=== PATIENT | male | born 1955 | race Caucasian/White ===

== ENCOUNTER → 2020-10-21 16:57 | Outpatient (CLI) | payer MEDICARE ==
[2020-10-21 17:27] LABS: ALBUMIN 3.2 g/dL (3.4-5.0); ALKALINE PHOSPHATASE 125 U/L (30-120); ALT (SGPT) 51 U/L (10-68); BILIRUBIN - TOTAL 0.69 mg/dL (0.2-1.3); CALC OSMOLALITY 273 mosm/kg (275-300); CALCIUM 9.2 mg/dL (8.5-10.1); CARBON DIOXIDE 20.4 mmol/L (21.0-32.0); CHLORIDE - SERUM 102 mmol/L (98-107); CREATININE - SERUM 0.8 mg/dL (0.6-1.3); GLUCOSE 106 mg/dL (74-106); POTASSIUM - SERUM 4.4 mmol/L (3.5-5.1); PROTEIN - SERUM 7.4 g/dL (6.4-8.2); SODIUM 136 mmol/L (136-145); UREA NITROGEN 19 mg/dL (7-18); eGFR NON AFRICAN AMERICAN > 90 mL/min (90-120)
[2020-10-21 17:47] LABS: HEMATOCRIT 41.5 % (42.0-54.0); LYMPHOCYTE ABS# 0.94 10x3/uL (1.32-3.57); MCHC 33.7 g/dL (31.0-37.0); MEAN PLATELET VOLUME 9.2 fL (7.4-10.4); NEUTROPHIL ABS# 18.04 10x3/uL (1.78-5.38); PLATELET COUNT 226 10x3/uL (130-400); RBC 4.37 10x6/uL (4.20-6.10); RDW 14.1 % (11.5-14.5); WBC 20.9 10x3/uL (4.8-10.8)
[2020-10-21 18:18] LABS: LYMPHOCYTES 11 % (15-50); MONOCYTES 5 % (2-11); NEUTROPHILS 84 % (40-80); PLATELET ESTIMATE NORMAL
== END | disposition home or self-care (01) ==
LOC: D.LABREF 16:57
PROVIDERS: ATTEND Family Medicine
DX: G31.83 Neurocognitive disorder with Lewy bodies (principal); E43 Unspecified severe protein-calorie malnutrition; F41.9 Anxiety disorder, unspecified

== ENCOUNTER → 2020-10-24 18:14 | Outpatient (CLI) | payer MEDICARE ==
[2020-10-24 18:35] LABS: HEMATOCRIT 41.5 % (42.0-54.0); HEMOGLOBIN 14.5 g/dL (13.5-17.5); LYMPHOCYTE ABS# 1.07 10x3/uL (1.32-3.57); MCH 32.5 pg (26.0-34.0); MCHC 34.9 g/dL (31.0-37.0); MEAN PLATELET VOLUME 8.7 fL (7.4-10.4); RBC 4.46 10x6/uL (4.20-6.10); WBC 10.5 10x3/uL (4.8-10.8)
[2020-10-24 18:36] LABS: PLATELET COUNT 292 10x3/uL (130-400)
[2020-10-24 19:21] LABS: LYMPHOCYTES 15 % (15-50); MONOCYTES 2 % (2-11); NEUTROPHILS 80 % (40-80); PLATELET ESTIMATE NORMAL
== END | disposition home or self-care (01) ==
LOC: D.LABREF 18:14
PROVIDERS: ATTEND Family Medicine
DX: D72.829 Elevated white blood cell count, unspecified (principal)

== ENCOUNTER → 2020-10-25 17:45 | Outpatient (CLI) | payer MEDICARE ==
[2020-10-25 19:37] LABS: ALBUMIN 3.4 g/dL (3.4-5.0); ALKALINE PHOSPHATASE 114 U/L (30-120); ALT (SGPT) 34 U/L (10-68); BILIRUBIN - TOTAL 0.42 mg/dL (0.2-1.3); CALC OSMOLALITY 289 mosm/kg (275-300); CARBON DIOXIDE 23.8 mmol/L (21.0-32.0); CHLORIDE - SERUM 98 mmol/L (98-107); POTASSIUM - SERUM 4.2 mmol/L (3.5-5.1); SODIUM 137 mmol/L (136-145); UREA NITROGEN 36 mg/dL (7-18); eGFR NON AFRICAN AMERICAN 79 mL/min (90-120)
[2020-10-25 19:54] LABS: GLUCOSE 235 mg/dL (74-106)
== END | disposition home or self-care (01) ==
LOC: D.LABREF 17:45
PROVIDERS: ATTEND Family Medicine
DX: E43 Unspecified severe protein-calorie malnutrition (principal); G31.83 Neurocognitive disorder with Lewy bodies; J18.9 Pneumonia, unspecified organism; R63.0 Anorexia

== ENCOUNTER → 2021-01-31 17:25 | Outpatient (CLI) | payer MEDICARE ==
[2021-01-31 19:40] LABS: BASOPHILS 0.9 % (0-2); EOSINOPHILS 3.2 % (0-7); HEMATOCRIT 43.9 % (42.0-54.0); HEMOGLOBIN 14.7 g/dL (13.5-17.5); LYMPHOCYTES 32.9 % (15-50); MCH 32.8 pg (26.0-34.0); MCHC 33.5 g/dL (31.0-37.0); MCV 98.1 fL (80.0-100.0); MEAN PLATELET VOLUME 7.8 fL (7.4-10.4); MONOCYTES 8.7 % (2-11); NEUTROPHILS 54.3 % (40-80); PLATELET COUNT 274 10x3/uL (130-400); RBC 4.48 10x6/uL (4.20-6.10); RDW 13.6 % (11.5-14.5); WBC 9.1 10x3/uL (4.8-10.8)
[2021-01-31 19:52] LABS: ALBUMIN 3.3 g/dL (3.4-5.0); ALKALINE PHOSPHATASE 78 U/L (30-120); ALT (SGPT) 37 U/L (10-68); BILIRUBIN - TOTAL 0.38 mg/dL (0.2-1.3); CALC OSMOLALITY 284 mosm/kg (275-300); CALCIUM 8.7 mg/dL (8.5-10.1); CARBON DIOXIDE 25.5 mmol/L (21.0-32.0); CHLORIDE - SERUM 107 mmol/L (98-107); CREATININE - SERUM 0.7 mg/dL (0.6-1.3); POTASSIUM - SERUM 4.6 mmol/L (3.5-5.1); SODIUM 142 mmol/L (136-145); UREA NITROGEN 21 mg/dL (7-18); VALPROIC ACID (DEPAKOTE) 32.9 ug/mL (50.0-100.0); eGFR NON AFRICAN AMERICAN > 90 mL/min (90-120)
[2021-01-31 19:56] LABS: GLUCOSE 83 mg/dL (74-106)
== END | disposition home or self-care (01) ==
LOC: D.LABREF 17:25
PROVIDERS: ATTEND Family Medicine
DX: R53.83 Other fatigue (principal)